=== PATIENT | female | born 1975 | race Caucasian/White ===

== ENCOUNTER 2023-07-04 08:05 | Day surgery (SDC) | payer OTHER, BC ==
[2023-06-25 16:44] VITALS: BP 142/99
[~2023-07-04] VITALS: Ht 175.3 cm; Wt 115.9 kg
--- NOTE | ~2023-07-04 | OR ---
[facility] [address] [place], [place] [address] [place] DATE OF OPERATION: 07/04/2023 SURGEON: Lola Caceres MD BIT SHAVER: Aden Monk DO PREOPERATIVE DIAGNOSIS: Displaced intrauterine device. POSTOPERATIVE DIAGNOSIS: Pelvic and abdominal adhesions, placement of the intrauterine device. PROCEDURE PERFORMED: Diagnostic laparoscopy, lysis of adhesions, retrieval of intrauterine device. ANESTHESIA: General ET. ESTIMATED BLOOD LOSS: Minimal. DRAINS: None. INDICATIONS AND FINDINGS: The patient is a 48-year-old female who is status post prior tubal ligation and has been using an IUD to manage her periods. At her last evaluation, she was having no bleeding, but the IUD string could not be seen. She subsequently went and underwent an ultrasound at [facility], which stated that there was no IUD seen on her ultrasound. X-ray was done because of this report and an IUD was seen in the left pelvis. Therefore, it was felt that the IUD, which had been placed several years ago had come out of the uterus and was in the abdomen. She was thus scheduled for surgery for retrieval of this IUD. At the time of surgery, exam under anesthesia was normal. There was no IUD string visible. However, after searching for the IUD in the abdominal cavity. X-rays were done, which revealed that the IUD was in the uterus and this was retrieved easily. DESCRIPTION OF PROCEDURE: The patient was prepped and draped in the dorsal lithotomy position. A weighted PATIENT NAME: NEHA HOWARD OPERATIVE REPORT DATE OF : 77 REPORT #: [id number] PHYSICIAN: LOLA CACERSE MD PCP: EHSAN CLAY PA-C REPORT IS CONFIDENTIAL AND NOT TO BE RELEASED WITHOUT AUTHORIZATION [facility] [address] [place], [place] [address] Draft speculum was placed and the anterior lip of the cervix was visualized and grasped with a single-tooth tenaculum. The Hulka clamp was then placed and the tenaculum and speculum removed. Attention was directed above. The infraumbilical area was injected with 0.5% Marcaine plain. An incision was made with a knife. Each layer was serially elevated incised until the fascia was opened and identified. Stay sutures of 0 Vicryl were placed. The peritoneum was opened bluntly. The Cris cannula was placed in the balloon inflated. The abdomen was inflated with carbon dioxide gas. There were adhesions of the omentum to the anterior abdominal wall predominantly just to the left of midline near the mid abdomen. Because of this, a secondary port was placed. These were placed laterally somewhat below the level of the umbilicus. Each of these areas was transilluminated, injected with the Marcaine, incision made with a knife and the trocars placed under direct vision. These were both 5 mm ports. The omental adhesions were then serially coagulated and divided. The pelvis was then visualized. There was evidence of prior tubal ligation. The ovaries and uterus otherwise appeared normal. Unfortunately, the IUD could not be seen. An extensive evaluation of the abdomen was done and again the IUD could not be found. Because of this, x-ray was called and multiple x-rays were done and the IUD eventually identified near the tip of the Hulka clamp. Because of this, attention was directed down below and the Hulka clamp removed and uterine forceps were used inside the uterus to retrieve the IUD intact. There was no evidence of any ongoing bleeding from the tenaculum site or the Hulka site. Following this, attention was redirected above. The abdomen was irrigated, inspected. There was no evidence of any ongoing bleeding. The inserts removed after allowing as much CO2 as possible to escape. The fascial incision at the umbilicus was re-identified and closed with a running suture of 0 Vicryl. The skin incisions were closed with subcuticular sutures of 3-0 Vicryl. All sponge and needle counts were correct. She tolerated the procedure well and was taken to the recovery room in good condition. Lola Caceres MD PJW/MODL /[id number] Copies: PATIENT NAME: NEHA HOWARD OPERATIVE REPORT DATE OF : 77 REPORT #: [id number] PHYSICIAN: LOLA CACERES MD PCP: EHSAN CLAY PA-C REPORT IS CONFIDENTIAL AND NOT TO BE RELEASED WITHOUT AUTHORIZATION [address] [address] Draft ~ PATIENT NAME: LEE,ERIC OPERATIVE REPORT DATE OF : 77 REPORT #: [id number] PHYSICIAN: LOLA CACERES MD PCP: EHSAN CLAY PA-C REPORT IS CONFIDENTIAL AND NOT TO BE RELEASED WITHOUT AUTHORIZATION
[~2023-07-04 08:05] MED LIST: ATIVAN1 MG; L-METHYLFOLATE15 M1 PO; LEVOTHYROXINE175 MC1 PO; LITHIUM CARBON150 MG PO; REXULTI2 MG PO
[2023-07-04 08:26] VITALS: BP 141/97
[2023-07-04] MEDS ORDERED: MULTI VITAMIN1 EACH PO (08:28)
[2023-07-04 10:26] VITALS: BP 106/61
--- NOTE | 2023-07-04 12:54 | NUR ---
07/04/23 Dariel4 Debbie Hernandez 1241 PT TO PACU SLEEPING ORAL AIRWAY IN PLACE, PT NEEDS JAW THRUST TO MAINTAIN OPEN AIRWAY. O2 VIA MASK FOGGING NOTED IN MASK.
[2023-07-04 13:48] VITALS: BP 144/90
--- NOTE | 2023-07-04 13:58 | NUR ---
1340- PT BACK TO DAY SURGERY TREATMENT ROOM VIA BED. LR INFUSING TO RH IV, PT SLIGHTLY DROWSY BUT ANSWERS QUESTIONS APPROPRIATELY. PT DENIES PAIN AND NAUSEA. WATER, APPLE JUICE, PUDDING AND JELLO PROVIDED TO PT. NO SIGNS OF DISTRESS.
[2023-07-04 14:39] VITALS: BP 156/88
--- NOTE | 2023-07-04 15:19 | NUR ---
1500: PT WITH CALL FOR THIS RN. REPORTS URGE TO VOID. DANGLES AT THE BEDSIDE, SILAS WELL. DENIES DIZZINESS AND SOB. AMBULATS TO BR WITH STANDBY FROM THIS RN, STEADY GAIT. SUCCESSFUL FIRST POSTOP VOID, 500MLS. BACK TO STRETCHER. COMFORTABLE WITHOUT NEEDS. CALL LIGHT WITHIN REACH
[2023-07-04 15:25] VITALS: BP 154/71
--- NOTE | 2023-07-04 15:51 | NUR ---
1525: PT AWAKE AND ORIENTED WATCHING TV IN BED. VSS, RESP EVEN AND UNLABORED. REPORTS SILAS PAIN LEVEL 3/10 BUT REQUESTS RX FOR DRIVE HOME. PO RX ADMINISTERED ORDERED. NO CHANGE TO LAP SITES. PT TO DRESS INDEPENDENTLY FOR DC. ATTENTIVE AT THE BEDSIDE
== END 2023-07-04 16:05 | disposition home or self-care (01) ==
LOC: DS 08:05 → OPS 08:05 → DS 10:45 → OPS 10:55
PROVIDERS: ATTEND Obstetrics & Gynecology
PROC: 0UPD4HZ Removal of Contraceptive Device from Uterus and Cervix, Percutaneous Endoscopic Approach (ICD-10-PCS; principal; 2023-07-04 10:55)
DX: T83.32XA Displacement of intrauterine contraceptive device, initial encounter (principal); Y84.8 Other medical procedures as the cause of abnormal reaction of the patient, or of later complication, without mention of misadventure at the time of the procedure; E03.9 Hypothyroidism, unspecified; F32.A Depression, unspecified; F43.10 Post-traumatic stress disorder, unspecified; G47.30 Sleep apnea, unspecified; Z79.899 Other long term (current) drug therapy; Z88.8 Allergy status to other drugs, medicaments and biological substances; E66.9 Obesity, unspecified; Z68.37 Body mass index [BMI] 37.0-37.9, adult
CPT/HCPCS: 00952; 76000; 84703; A9270; J0131; J0690; J1100; J1885; J2001; J2250; J2405; J2704; J2765; J3010; J3490; J7121